=== PATIENT | female | born 1995 | race Caucasian/White ===

== ENCOUNTER 2016-08-13 22:18 | Emergency (ER) | payer SELFPAY ==
[~2016-08-13] VITALS: Ht 157.5 cm; Wt 75.0 kg
[2016-08-13 22:41] VITALS: Ht 157.5 cm; Wt 75.0 kg
[2016-08-14] MEDS ORDERED: ACETAMINOPHEN 325 MG TAB PO ONE (02:00)
[2016-08-14 02:24] LABS: URINE BLOOD (Dip) POC Negative (NEGATIVE)
[2016-08-14] MEDS ORDERED: ONDANSETRON (ODT) 4 MG TAB ODT STA ×2 (02:28→03:27)
--- NOTE | 2016-08-14 02:30 | ERA ---
ER Documentation Chief Complaint Date/Time DATE: 08/14/16 TIME: 02:28 Chief Complaint Left flank pain with pelvic pain and episode of vomiting HPI Patient is a 21-year-old female who is complaining of bilateral lower abdominal pain. Patient's pain is described as crampy and chronic persisting for the past 2 years. Has been evaluated by another emergency department in another state and "I left and decided to move to [place] and set of following up with them". Patient has a positive history of ovarian cysts. Patient is now also complaining of nausea. There are no other associated manifestations and patient denies fever, pain associated with eating, or use of medications to relieve the symptoms. ROS All systems reviewed and are negative except as per history of present illness. Allergies Allergies: Uncoded Allergies: DERMABOND (Allergy, Intermediate, Redness, 08/13/16) NEOSOPORIN (Allergy, Intermediate, 08/13/16) TEGADERM (Allergy, Intermediate, Redness, 08/13/16) PMhx/Soc History of Surgery: Yes (APPY; CHOLEY; CYST SX) Anesthesia Reaction: No Hx Neurological Disorder: No Hx Respiratory Disorders: No Hx Cardiac Disorders: No Hx Psychiatric Problems: No Hx Miscellaneous Medical Probl: Yes (OVARIAN CYSTS; ) Hx Alcohol Use: No Hx Substance Use: No Hx Tobacco Use: No Smoking Status: Never smoker Physical Exam Vitals Vital Signs Date Time Temp Pulse Resp B/P Pulse Ox O2 Delivery O2 Flow Rate FiO2 08/13/16 22:41 98.6 78 18 103/53 98 Physical Exam Const: [] Head: Atraumatic Eyes: Normal Conjunctiva ENT: Normal External Ears, Nose and Mouth. Neck: Full range of motion..~ No meningismus. Resp: Clear to auscultation bilaterally Cardio: Regular rate and rhythm, no murmurs Abd: Soft, non tender, non distended. Normal bowel sounds Skin: No petechiae or rashes Back: No midline or flank tenderness Ext: No cyanosis, or edema Neur: Awake and alert Psych: Normal Mood and Affect Results 24 hrs Laboratory Tests Test 08/14/16 02:26 Bedside Urine pH (LAB) 5.5 Bedside Urine Protein (LAB) Negative Bedside Urine Glucose (UA) Negative Bedside Urine Ketones (LAB) Negative Bedside Urine Blood Negative Bedside Urine Nitrite (LAB) Negative Bedside Urine Leukocyte Esterase (L Negative Current Medications Medications (Trade) Dose Ordered Sig/Mathew Route PRN Reason Start Time Stop Time Status Last Admin Dose Admin Acetaminophen (Tylenol Tab) 650 mg ONCE ONCE PO 08/14/16 02:00 08/14/16 02:01 DC 08/14/16 02:31 Ondansetron HCl (Zofran Odt) 4 mg ONCE STAT ODT 08/14/16 02:28 08/14/16 02:29 DC 08/14/16 02:30 Acetaminophen/ Hydrocodone Bitart ([place] (5/325)) 1 tab ONCE ONCE PO 08/14/16 03:30 08/14/16 03:31 DC 08/14/16 03:31 Ondansetron HCl (Zofran Odt) 4 mg ONCE STAT ODT 08/14/16 03:27 08/14/16 03:28 DC 08/14/16 03:32 Procedures/MDM Patient is being evaluated and worked up for abdominal pain/pelvic pain. Patient received a urine dip which was negative. Tylenol was ordered for patient's discomfort as well as Zofran for nausea. Ultrasound was then ordered to rule out ovarian torsion. Ultrasound showed the following:Right ovarian 1.8 cm hemorrhagic cyst. Mild pelvic free fluid. The most likely diagnosis at this time is pain secondary to the hemorrhagic cyst. The pain has been persisting for the past 2 years and have very low suspicion for appendicitis. Psoas and obturator sign were negative. At this time a very low suspicion for appendicitis, ischemia of the intestine, pathology of the pancreas or gallbladder. Patient is currently stable with stable vital signs. We will go ahead and discharge the patient with ibuprofen, instructions and I have discussed with the patient with verbal acknowledgment about return precautions. Departure Diagnosis: Primary Impression: Hemorrhagic cyst of ovary Additional Impression: Flank pain Condition: Stable Additional Instructions: Follow up with your PCP within the next 1-3 days for a more thorough evaluation and a possible referral to a specialist. Return the the emergency department immediately if symptoms worsen or change. If you have any questions regarding medications, ask your pharmacist or us before you leave. If any adverse reactions occur while taking your medications, discontinue the treatment and return to the emergency department immediately. Take your medications as directed, and complete the entire course of treatment. JENIFER PACKER PA-C August 14, 2016 02:30
[2016-08-14] MEDS ORDERED: HYDROCODONE/APAP (5/325) TAB PO ONE (03:30)
--- NOTE | 2016-08-14 03:46 | RADRPT ---
PROCEDURE: Pelvic ultrasound. CLINICAL INDICATION: Pelvic pain. TECHNIQUE: Multiple sonographic images of the pelvis were obtained utilizing a transabdominal and endovaginal technique. The images were reviewed on a PACS workstation. COMPARISON: None. FINDINGS: The uterus is visualized and measures 8.3 x 4.7 x 5.2 cm. No abnormal uterine mass is identified. T he endometrial echo complex is homogeneous and measures 12.2 mm. There is trace fluid within the end ometrial canal. There is mild free fluid within the posterior cul-de-sac.. The right ovary has a normal echotexture and measures 3.5 x 2.2 x 2.1 cm. The left ovary has a normal echotexture and measures 3.3 x 1.9 x 2.4 cm. There is normal flow to both ovaries. There is a hemorrhagic cyst within the right ovary me asuring 1.6 x 1.6 x 1.8 cm. No adnexal masses are identified. IMPRESSION: Right ovarian 1.8 cm hemorrhagic cyst. Mild pelvic free fluid. .Jacinto Delaney MD, Date Time Electronically viewed and signed by .Jacinto Delaney MD, MD on 08/14/2016 03:45 .T/
[2016-08-14] MEDS ORDERED: IBUP-1542 PO (04:03)
[2016-08-14 04:23] VITALS: PULSE 69; RESP 20; TEMP 98.6
== END 2016-08-14 04:22 | disposition home or self-care (01) ==
LOC: FTE 22:18
DX: N83.201 Unspecified ovarian cyst, right side (principal); R10.2 Pelvic and perineal pain
CPT/HCPCS: 76830; 76856; 81003